=== PATIENT | female | born 1955 | race Caucasian/White ===

== ENCOUNTER → 2016-09-18 | Outpatient (CLI) | payer SELFPAY ==
--- NOTE | 2016-09-18 12:19 | CT ---
Procedure: CT ABDOMEN PELVIS WITHOUT THEN WITH IV CONTRAST Exam Date: 09/18/2016 10:42 AM CDT Ordering Provider: RICO COOLEY Clinical Indication: ABD PAIN Comparison: None TECHNIQUE: The abdomen and pelvis were scanned utilizing a multidetector helical scanner from the diaphragm to the lesser trochanter without and with contrast. Oral contrast was given. Low osmolar IV contrast was given. Coronal and sagittal reformations were obtained. DISCUSSION: LOWER THORAX: Normal. HEPATOBILIARY: No focal hepatic lesions. No biliary ductal dilatation. SPLEEN: No splenomegaly. PANCREAS: No focal masses or ductal dilatation. ADRENALS: No adrenal nodules. KIDNEYS/URETERS: There is moderate to severe hydroureteronephrosis involving the left renal collecting system secondary to a 1.4 cm long stone within the distal left ureter. Several punctate nonobstructing stones are also present within the left kidney. 5 mm nonobstructing stone is seen in the upper pole and lower poles of the right kidney. No right-sided hydronephrosis. PELVIC ORGANS/BLADDER: Unremarkable. PERITONEUM / RETROPERITONEUM: No free air or fluid. LYMPH NODES: No lymphadenopathy. VESSELS: Unremarkable. GI TRACT: No distention or wall thickening. BONES AND SOFT TISSUES: No acute abnormality. IMPRESSION: 1. Approximately 14 mm obstructing stone in the distal left ureter results in moderate to severe hydroureteronephrosis. 2. Multiple nonobstructing stones in bilateral kidneys. Electronically signed by: Jasmina Corbin MD 09/18/2016 12:18 PM CDT
== END | disposition home or self-care (01) ==
LOC: CT 10:30
PROVIDERS: ATTEND Family Medicine
DX: N20.1 Calculus of ureter (principal)

== ENCOUNTER → 2018-11-09 | Outpatient (CLI) | payer OTHER | LOC: LAB.O 11:08 | PROVIDERS: ATTEND Internal Medicine Rheumatology | DX: M06.89 Other specified rheumatoid arthritis, multiple sites (principal); Z79.899 Other long term (current) drug therapy ==

== ENCOUNTER → 2019-02-15 | Outpatient (CLI) | payer OTHER | LOC: LAB.O 09:56 | PROVIDERS: ATTEND Internal Medicine Rheumatology | DX: M06.89 Other specified rheumatoid arthritis, multiple sites (principal); Z79.899 Other long term (current) drug therapy ==

== ENCOUNTER → 2019-06-09 | Outpatient (CLI) | payer OTHER | LOC: LAB.O 10:23 | PROVIDERS: ATTEND Internal Medicine Rheumatology | DX: M06.89 Other specified rheumatoid arthritis, multiple sites (principal); Z79.899 Other long term (current) drug therapy ==

== ENCOUNTER → 2019-10-17 | Outpatient (CLI) | payer OTHER | LOC: LAB.O 11:58 | PROVIDERS: ATTEND Internal Medicine Rheumatology | DX: M81.0 Age-related osteoporosis without current pathological fracture (principal); Z79.899 Other long term (current) drug therapy ==

== ENCOUNTER → 2020-04-23 | Outpatient (CLI) | payer SELFPAY | LOC: LAB.O 12:35 | PROVIDERS: ATTEND Internal Medicine Rheumatology | DX: Z79.899 Other long term (current) drug therapy (principal); M06.89 Other specified rheumatoid arthritis, multiple sites; M81.0 Age-related osteoporosis without current pathological fracture ==